=== PATIENT | female | born 1955 | race Caucasian/White ===

== ENCOUNTER → 2017-10-21 | Day surgery (SDC) | payer OTHER ==
[2014-08-09 10:34] VITALS: BP 142/82
[~2017-10-21] MED LIST: LACTATED RINGERS 1,000 ML IV.SOLN IV ONE; LIDOCAINE HCL/PF 2% 100 MG/5 ML VIAL IJ ONE; PROPOFOL 500 MG/50 ML VIAL IV ONE; SALINE FLUSH 10 ML DISP.SYRIN IVF ONE
--- NOTE | 2017-10-21 15:49 | GI Report ---
REFERRING PHYSICIAN: Dr. Chuck Kimbrough PROTECTIVE SIGNAL INSTALLER: Corey Ayala MD PROCEDURE MEDICATION: Propofol as per anesthesia. INDICATIONS: Patient is a 62-year-old woman from [place] at [facility], an outpatient care facility. She has had multiple adenomatous polyps in the past. She is referred for a follow up evaluation and surveillance for high risk. She has had a previous appendectomy and cholecystectomy. PROCEDURE PERFORMED: Colonoscopy and polypectomy. PROCEDURE: An Olympus video colonoscope was advanced to the rectum. The prep was only fair again. An extremely atonic redundant colon. It took nurse compression to help reach the cecum. In the hepatic flexure area, patient had 2 polyps that were 3 to 4 mm sessile removed with electrocautery. In the transverse colon, there were another 2 polyps that were 3 to 4 mm sessile removed with electrocautery. Descending colon with a lot of diverticula and really only poor prep there. No obvious intraluminal lesions noted, though the prep makes it difficult. Patient tolerated the procedure well. FINDINGS: 1. Four polyps removed. 2. Poor prep. 3. An atonic redundant colon. RECOMMENDATIONS: 1. Pending the pathology of the polyps, would re-look at her colon again in 3 years. 2. She needs to be on a 2-day prep next time. cc: Dr. Chuck SANCHEZ
== END ==
LOC: OPSURG 08:48
PROVIDERS: ATTEND Internal Medicine Gastroenterology
DX: D12.4 Benign neoplasm of descending colon (principal); K57.30 Diverticulosis of large intestine without perforation or abscess without bleeding
CPT/HCPCS: 88305; J2001; J2704; J7120; 45385; S1016